=== PATIENT | female | born 1970 ===

== ENCOUNTER 2018-04-05 07:22 | Day surgery (SDC) | payer OTHER ==
[~2018-04-05 07:22] MED LIST: Buffered Lidocaine 0.9% SYRIN* 5 ML/SYR SYRINGE INTRADERM ONE
[2018-04-05] MEDS ORDERED: ceFAZolin 2 GM PREMIX in ORs 2 GM/50 ML BAG IVPB ONE (07:50)
[2018-04-05] MEDS ORDERED: Midazolam* 1 MG/ML 5 ML VIAL (5 MG) ONE (08:18)
[2018-04-05] MEDS ORDERED: fentaNYL* 50 MCG/ML 2 ML VIAL (100 MCG VIAL) ONE ×2 (08:18→11:19)
[2018-04-05] MEDS ORDERED: Propofol* 10 MG/ML 20 ML BTL IV PUSH ONE ×3 (08:21→11:23)
[2018-04-05] MEDS ORDERED: ROPIVACAINE 5 MG/ML 30 ML BTL (0.5%) ONE (08:39)
[2018-04-05] MEDS ORDERED: Lidocaine 1% INJ* 10 MG/ML 30 ML SDV ONE (08:39)
[2018-04-05] MEDS ORDERED: Dexamethasone IV* 4 MG/ML 1 ML (4 MG) ONE (08:40)
[2018-04-05] MEDS ORDERED: Midazolam* 1 MG/ML 2 ML VIAL (2 MG) ONE (11:19)
[2018-04-05] MEDS ORDERED: Ondansetron INJ* 2 MG/ML VIAL ONE (11:54)
[2018-04-05] MEDS ORDERED: Ondansetron INJ* 2 MG/ML VIAL IV PRN (11:57)
[2018-04-05] MEDS ORDERED: Naloxone* 0.4 MG/ML 1 ML VIAL IV PRN (11:57)
[2018-04-05] MEDS ORDERED: PROCHLORPERAZINE INJ 5 MG/ML 2 ML VIAL IV PRN (11:57)
[2018-04-05 12:55] VITALS: BP 112/62
--- NOTE | 2018-04-05 23:34 | OP ---
DATE OF OPERATION: 04/05/18 [facility] DATE OF : 74 SURGEON: Calos Haq DPM JIG BORE OPERATOR: None. ANESTHESIA: MAC with local. PRE-OP DIAGNOSES: 1. Chronic recurrent bunion deformity with hallux limitus, left foot. 2. Painful thickened left hammertoe deformity. 3. Painful tailor's bunion on the left foot. POST-OP DIAGNOSES: 1. Chronic recurrent bunion deformity with hallux limitus, left foot. 2. Painful thickened left hammer toe deformity. 3. Painful tailor's bunion on the left foot. OPERATIVE PROCEDURE: 1. Revisional bunionectomy with first metatarsal osteotomy with screw fixation in the left foot. 2. Correction of second left hammer toe with PIPJ arthrodesis and MTPJ arthrotomy with K-wire fixation second digit, left foot. 3. Tailor's bunionectomy. 4. Fifth metatarsal osteotomy, left foot. PATHOLOGY: Degenerative bone. HEMOSTASIS: Pneumatic ankle tourniquet. ESTIMATED BLOOD LOSS: Less than 30 cc. MATERIALS: Smooth 0.062 inch K-wire and 4 of the 3.0 mm cannulated [place] screws. INDICATIONS: The patient with chronic left forefoot pain and deformities making painful to walk and wear shoes and exercise. She had bunionectomy at age 24 and slowly the deformity has recurred and she has developed increasing pain and stiffness above the joint as well. She developed increasing contracture of her second left toe that rubs in most of her shoes. There has also been an enlargement in progressive growth in the lateral aspect of the fifth metatarsal with the tailor's bunion deformity. She opted for surgery at this time to attempt to decrease the pain, decrease the deformities, and improve her function and ability to wear closed shoes. DESCRIPTION OF PROCEDURE: The patient was brought to the operating room and placed on the operating table in supine position. The anesthesia department administered IV sedation and a peripheral nerve block was performed about the left foot with a 1:1 mixture of 1% lidocaine plain and 0.5% Ropivacaine plain. The left foot was then prepped and draped in the usual fashion. The left foot was exsanguinated with an Esmarch bandage and the pneumatic ankle tourniquet was inflated to 250 mmHg about a well-padded left ankle. Attention was directed to the dorsal medial aspect of the left great toe joint where a curvilinear incision was made. The incision was deepened through subcutaneous tissues with care being taken to retract neurovascular structures and cauterize superficial bleeders as needed. Dissection was carried down to the periosteal and capsular tissues and inverted L capsular incision was made. This was also extended further distal medially as there was noted to be some hypertrophic bone at the proximal medial base of the proximal phalanx. After exposure of the joint, there was noted to be some partial and full thickness cartilaginous defects at the medial quarter of the first metatarsal head. There was also noted to be hypertrophic bone in this area as well as dorsally. Dissection was performed into the first metatarsal space and as she had previous bunion surgery , much of the anatomy had already been released, although the lateral capsule and portion of the lateral fibular sesamoid was further released. McGlamry elevator was needed to free plantar lateral adhesions of the sesamoid. This allowed for relaxation of the lateral contractures. Sagittal saw was used to resect the hypertrophic bones from the medial and dorsal aspect of first metatarsal head as well as the proximal medial base of the proximal phalanx. Power virgen was used to smooth the rough edges. Rongeur was also used to resect hypertrophic bone around the margins of the joint elsewhere as needed. The surgical site was flushed with copious amounts of normal sterile saline. Next, due to the previous surgery and the deformity within the first metatarsal , a modified scarf type osteotomy was performed. The transverse cut was made initially from medial to lateral with the sagittal saw. The dorsal distal cut was then made and a proximal plantar cut was then made. The capital fragment was able to then be translated laterally as well as rotated as needed and maintaining a length as much is possible. The temporary fixation was achieved with a bone clamp and then two wires from screw set were also used. The position was checked from the C-arm and using standard technique, two of the 3.0 mm cannulated [place] screws were implanted. The temporary fixation was removed, the osteotomy was found to be solid. There was no detectable motion or gapping. The redundant medial shaft of bone was resected and screws were found to be 2 fingers tight and the C-arm was used to confirm placement of the hardware as well as the correction of positioning. Power virgen was used to smooth any rough edges. The surgical site was flushed with copious amounts of normal sterile saline. Medial capsulorrhaphy was performed. Resection was done in the medial capsule and the capsular and periosteal tissues were reapproximated and secured with hallux in the rectus position with 2-0 Vicryl. Subcutaneous tissues were reapproximated and secured with 4-0 Vicryl and the skin was closed with 5-0 nylon. Attention was then directed to the second digit where the dorsal and medial contracture at the metatarsal phalangeal joint as well as the proximal interphalangeal joint. A curvilinear incision was made, deepened through the skin and subcutaneous tissues with care being taken to retract neurovascular structures and cauterize superficial bleeders as needed. The extensor sanders was released and a Z extensor tendon lengthening was performed and transverse capsulotomy was performed at the metatarsophalangeal joint. A tenotomy capsulotomy was performed at the proximal interphalangeal joint and collateral ligaments were incised. The McGlamry elevator was needed to free the plantar adhesions at the second metatarsal phalangeal joint. Proximal phalangeal head as well as the adjacent base of the medial phalanx were resected in preparation of the arthrodesis and the power virgen was used to smooth any rough edges. The surgical site was flushed with copious amounts of normal sterile saline. Next, using a smooth 0.062 inch K-wire driven to the base of the proximal phalanx through tip of the digit retrograde through the proximal phalanx and across the metatarsal phalangeal joint into the distal second metatarsal but holding the digit in a corrected position. The position was assessed with C-arm and the wire was then bent, cut and capped. The approximation of the proximal and medial phalanges was assessed and confirmed. Redundant dorsal sensor tendon was resected. Surgical site was again flushed with copious amounts of normal sterile saline. A 4-0 Vicryl was used to secure the capsular and tendinous structures and subcutaneous tissues were reapproximated with 4-0 Vicryl and skin was closed with 5-0 nylon. Attention was directed to the dorsal lateral aspect of the fifth metatarsophalangeal joint, where a curvilinear incision was made along the fifth metatarsal. The incision was deepened through subcutaneous tissues with care being taken to retract neurovascular structures and cauterize superficial bleeders as needed. The linear periosteal incision was made to allow for adequate exposure of the fifth metatarsal. There was noted to be hypertrophic bone at the lateral aspect of the fifth metatarsal head and this was resected with a sagittal saw and a power virgen was used to smooth the rough edges. The surgical site was flushed with copious amounts of normal sterile saline. Next, a long closing base wedge osteotomy was performed from dorsal to plantar with the proximal medial hinge maintained. The osteotomy was reduced. Temporary fixation was achieved with the bone clamp and 2 wires from the screw set were implanted. The position was checked with the C-arm. Next, using standard technique, two of the 3.0 mm cannulated [place] screw was placed across the osteotomy site. All temporary fixation was removed. The osteotomy was inspected and found to be solid with no detectable motion or gaping. The screws were found to be 2 fingers tight. The periosteal and capsular tissues were reapproximated and secured with 4-0 Vicryl and subcutaneous subcutaneous tissues were reapproximated with 4-0 Vicryl and skin was closed with 5-0 nylon. 12 mg of dexamethasone phosphate was infiltrated about the surgical sites and surgical sites were dressed with Xeroform gauze and a light sterile compressive dressing consisting of 4x4 gauze, Jese, and light Coban wrap was applied well splinting and holding the digits in the corrected positions. The pneumatic ankle tourniquet was deflated about the left ankle and a prompt hyperemic response was noted in all 5 digits of the patient's left foot. Having appeared to tolerate the procedure and the anesthesia well, the patient was transported via cart from the operating room to Recovery in satisfactory condition with capillary refill less than 3 seconds to all digits of the left foot. [id number]/[facility] #: [id number] [facility]PITALErasmo
--- NOTE | 2018-04-10 16:42 | RAD ---
CPT II Codes: G9500 INDICATION: Left bunionectomy with metatarsal osteotomy. Correction of second hammertoe Fluoroscopic services provided for referring physician. Approximately 15 seconds of fluoroscopy time was used. 4 spot images demonstrates bunionectomy with osteotomy of the distal end of the first metatarsal and internal fixation. Additional internal fixation of the second digit was also performed. IMPRESSION: Fluoroscopic services provided for referring physician for first and second digit osteotomy and bunionectomy and correction of hammertoe deformity of the second digit.
== END 2018-04-05 12:48 | disposition home or self-care (01) ==
LOC: OREAST 07:22
PROVIDERS: ATTEND Podiatrist Foot Surgery
DX: M21.612 Bunion of left foot (principal); M20.42 Other hammer toe(s) (acquired), left foot; M21.622 Bunionette of left foot
CPT/HCPCS: 76000; 81025; C1713; C1776; J0690; J1100; J2250; J2405; J2704; J2795; J3010

== ENCOUNTER 2018-10-04 07:16 | Day surgery (SDC) | payer OTHER ==
[~2018-10-04 07:16] MED LIST changes: -Buffered Lidocaine 0.9% SYRIN* 5 ML/SYR SYRINGE INTRADERM ONE; +Buffered Lidocaine 1% SYRIN* 1 ML/SYRINGE INTRADERM ONE; +Famotidine IV* 10 MG/ML 2 ML (20 mg) IV ONE; +Lactated Ringers 1000 ML Bag* 1,000 ML IV SCH
[2018-10-04] MEDS ORDERED: ceFAZolin 2 GM PREMIX in ORs 2 GM/50 ML BAG IVPB ONE (07:48)
[2018-10-04] MEDS ORDERED: Famotidine IV* 10 MG/ML 2 ML (20 mg) ONE (07:48)
[2018-10-04] MEDS ORDERED: oxyCODONE TAB* 5 MG TAB PO PRN (08:25)
[2018-10-04] MEDS ORDERED: Acetaminophen TAB* 325 MG PO PRN (08:25)
[2018-10-04] MEDS ORDERED: Naloxone* 0.4 MG/ML 1 ML VIAL IV PRN (08:25)
[2018-10-04] MEDS ORDERED: DiMENhydriNATE IV* 50 MG/ML VIAL IV PUSH PRN (08:25)
[2018-10-04] MEDS ORDERED: Midazolam* 1 MG/ML 5 ML VIAL (5 MG) ONE (08:33)
[2018-10-04] MEDS ORDERED: fentaNYL* 50 MCG/ML 2 ML VIAL (100 MCG VIAL) ONE (08:33)
[2018-10-04] MEDS ORDERED: Ondansetron INJ* 2 MG/ML VIAL ONE (08:35)
[2018-10-04] MEDS ORDERED: Propofol* 10 MG/ML 20 ML BTL ONE (08:35)
[2018-10-04] MEDS ORDERED: Ketorolac INJ* 30 MG/ML 1 ML VIAL ONE (08:35)
[2018-10-04] MEDS ORDERED: Lidocaine 2% PF * 5 ML VIAL ONE (08:35)
[2018-10-04] MEDS ORDERED: Lidocaine 1% INJ* 10 MG/ML 30 ML SDV ONE (08:39)
[2018-10-04] MEDS ORDERED: Bupivacaine 0.5% SDV PF* 30ML VIAL ONE (08:40)
[2018-10-04 09:53] VITALS: BP 106/84
--- NOTE | 2018-10-04 12:21 | OP ---
OPERATIVE REPORT: DATE OF OPERATION: 10/04/18 - [facility] DATE OF : 74 SURGEON: Calos Haq DPM INTERACTIVE PRODUCER: None.\ ANESTHESIOLOGIST: Georgiana Auguste MD ANESTHESIA: MAC with local. PRE-OP DIAGNOSIS: Painful screw fixation x2 in the fifth metatarsal of left foot. POST-OP DIAGNOSES: Painful screw fixation x2 in the fifth metatarsal of left foot. OPERATIVE PROCEDURE: Removal of 2 deep screws from fifth metatarsal of left foot. PATHOLOGY: Removed hardware. HEMOSTASIS: Pneumatic ankle tourniquet. ESTIMATED BLOOD LOSS: Less than 10 cc. INDICATIONS: The patient with previous fifth metatarsal osteotomy with 2 screws used for fixation. She resumed her higher level of activity, one screw became loose and the other became symptomatic and she needs the screws removed at this time. DESCRIPTION OF PROCEDURE: The patient was brought to the operating room, placed on the operating room table in supine position. The anesthesia department administered IV sedation and the peripheral nerve block was performed at the left foot with a 1:1 mixture of 1% lidocaine plain and 0.5% Marcaine plain. The left foot was then prepped and draped in usual fashion. The left foot was then exsanguinated with an Esmarch bandage and pneumatic ankle tourniquet was inflated to 250 mmHg about well-padded left ankle. The C- arm was used to confirm and localize the screw head location and using the previous surgical incision, linear incision was made to allow for exposure. Dissection was carried through the subcutaneous tissue with sharp and blunt instrumentation. Care had been taken to retract neurovascular structures and cauterize any bleeders as needed. At the level of the deep fascia, linear incision was made and the periosteum was reflected to allow for exposure of the screw heads. Both screws were identified and free from any soft tissue entrapment and retrograde of the fifth metatarsal. Both screws were inspected and found to be intact without any signs of breakage or shearing. The area was palpated and there was no hypertrophic bone that need to be reduced, so the area was flushed with copious amount of normal sterile saline and the periosteal and deep fascia was reapproximated with 4-0 Vicryl. Subcutaneous tissues were closed in layers with 4-0 Vicryl and skin was reapproximated and secured with 5-0 nylon. The incision was dressed with Xeroform gauze and mildly compressive dressing was applied consisting of 4x4 gauze, Jese and a light Coban wrap. Pneumatic ankle tourniquet was deflated about the left ankle and prompt hyperemic response noted in all 5 digits of the patient's left foot. Having appeared to have tolerated the procedure and the anesthesia well, the patient was transported via cart from the operating room to Recovery in satisfactory condition with cap refill less than 3 seconds to all digits of the left foot. [id number]/[facility] #: [id number] MTDD
== END 2018-10-04 10:08 | disposition home or self-care (01) ==
LOC: OREAST 07:16
PROVIDERS: ATTEND Podiatrist Foot Surgery
DX: T84.84XA Pain due to internal orthopedic prosthetic devices, implants and grafts, initial encounter (principal); Y83.1 Surgical operation with implant of artificial internal device as the cause of abnormal reaction of the patient, or of later complication, without mention of misadventure at the time of the procedure; M79.672 Pain in left foot; M19.90 Unspecified osteoarthritis, unspecified site
CPT/HCPCS: 81025; 88300; J0690; J1885; J2250; J2405; J2704; J3010; J3490